=== PATIENT | male | born 1980 | race Caucasian/White ===

== ENCOUNTER 2017-12-11 06:50 | Emergency (ER) | payer OTHER ==
[2017-12-11 07:16] VITALS: BP 140/79; PULSE 84; TEMP 98.2; BMI 28.3
--- NOTE | 2017-12-11 08:23 | PDOC ---
History of Present Illness - General Chief Complaint: Pain Stated Complaint: STD TESTING Time Seen by Provider: 12/11/17 07:18 History Source: Patient Exam Limitations: No Limitations - History of Present Illness Initial Comments: 12/11/17 08:00 37-year-old male presents to the emergency room here for evaluation of possible STD exposure. Patient states had unprotected sex with a female he did not know prior to intercourse and states she is a IVDA user. Patient states has no symptoms wants recheck for everything. Patient states last time he was checked for HIV was a few years ago. Timing/Duration: other (3 days ago) Associated Symptoms: reports: denies symptoms Past History - Travel Traveled outside of the country in the last 30 days: No - Past Medical History Allergies/Adverse Reactions: Allergies Allergy/AdvReac Type Severity Reaction Status Date / Time No Known Allergies Allergy Verified 12/11/17 07:10 Home Medications: Ambulatory Orders NK [No Known Home Medication] 12/11/17 COPD: No - Surgical History Abdominal Surgery: Yes (hernia) - Suicide/Smoking/Psychosocial Hx Smoking History: Current every day smoker Have you smoked in the past 12 months: Yes Number of Cigarettes Smoked Daily: 20 Information on smoking cessation initiated: Yes 'Breaking Loose' booklet given: 12/11/17 Hx Alcohol Use: No Drug/Substance Use Hx: Yes (clare,pcp) Substance Use Type: Marijuana Patient Lives Alone: Yes Lives with/in: lives alone Review of Systems - Review of Systems Able to Perform ROS?: Yes Constitutional: No: Symptoms Reported HEENTM: No: Symptoms Reported Respiratory: No: Symptoms reported, Hemoptysis ABD/GI: No: Symptoms Reported Musculoskeletal: No: Symptoms Reported Integumentary: No: Symptoms Reported Neurological: No: Symptoms reported Endocrine: No: Symptoms Reported Hematologic/Lymphatic: No: Symptoms Reported *Physical Exam - Vital Signs Last Vital Signs Temp Pulse Resp BP Pulse Ox 98.2 F 84 18 140/79 95 12/11/17 07:10 12/11/17 07:10 12/11/17 07:10 12/11/17 07:10 12/11/17 07:10 - Physical Exam General Appearance: Yes: Nourished, Appropriately Dressed. No: Apparent Distress HEENT: positive: Pharynx Normal (no sores/lesions) Neck: positive: Supple. negative: Lymphadenopathy (R), Lymphadenopathy (L) Gastrointestinal/Abdominal: positive: Soft. negative: Tenderness Male Genitalia: positive: normal genitalia (no discharge). negative: testicular tenderness Integumentary: positive: Normal Color, Warm, Moist Neurologic: positive: Normal Mood/Affect, Motor Strength 5/5 (ambulatory) Medical Decision Making - Medical Decision Making 12/11/17 08:00 Patient here for evaluation of STDs last HIV exposure. Patient states had unprotected sex with a female whom he did not know prior to intercourse and states she was actively using IV heroin while in his presence. Patient has no complaints. Patient has no complaints. 12/11/17 09:55 Laboratory Tests 12/11/17 08:15 HIV 1&2 Antibody Screen Negative HIV P24 Antigen Negative Patient will be notified if GC chlamydia along with remainder of labs. Patient also aware to return to ED if he starts to develop symptoms such as penile discharge or dysuria. Patient also aware to return in 6 months for repeat testing for HIV. *DC/Admit/Observation/Transfer Diagnosis at time of Disposition: Possible exposure to STD - Discharge Dispostion Disposition: HOME Condition at time of disposition: Good - Referrals - Patient Instructions Printed Discharge Instructions: How to Detect and Treat STDs Additional Instructions: Please return to ED if you start to develop symptoms such as penile discharge or dysuria. Please be aware to return in 6 months for repeat testing for HIV. - Post Discharge Activity
[2017-12-13 06:06] LABS: HBsAG SCREEN Negative (Negative); HEPATITIS B CORE ANTIBODY Negative (Negative)
== END 2017-12-11 10:25 | disposition home or self-care (01) ==
LOC: JER 06:50
DX: Z20.2 Contact with and (suspected) exposure to infections with a predominantly sexual mode of transmission (principal)
CPT/HCPCS: 36415; 86593; 86704; 87340; 87389; 87491; 87591; 99283-25